=== PATIENT | male | born 1990 | race Caucasian/White ===

== ENCOUNTER 2018-01-03 19:20 | Emergency (ER) | payer BC, OTHER ==
[~2018-01-03] VITALS: Ht 177.8 cm; Wt 102.9 kg
[~2018-01-03 19:20] MED LIST: AMPH1TAB83 PO; LISD60CA PO
[2018-01-03 19:26] VITALS: TEMP 39.4; Ht 177.8 cm; Wt 102.9 kg
[2018-01-03] MEDS ORDERED: IBUPROFEN 600 MG TAB PO STA (19:37)
[2018-01-03] MEDS ORDERED: SODIUM CHLORIDE 0.9% 1000ML 1,000 ML IV STA (19:37)
[2018-01-03] MEDS ORDERED: ONDANSETRON INJ 2 MG/ML 2 ML VIAL IV STA (19:37)
[2018-01-03] MEDS ORDERED: ACETAMINOPHEN 325 MG TAB PO ONE (19:45)
[2018-01-03 19:49] VITALS: O2SAT 98
[2018-01-03 20:06] LABS: BASO % 0.1 %; BASO ABS # 0.01 K/uL (0-0.2); EOS % 0.1 %; EOS ABS # 0.01 K/uL (0-0.5); HEMATOCRIT 36.9 % (42-52); HEMOGLOBIN 13.2 g/dL (14.0-18.0); IG# 0.02 K/uL (0.00-0.02); LYMPH % 9.5 %; MEAN CELL VOLUME 90.2 fL (80-100); MEAN CORPUSCULAR HEMOGLOBIN 32.3 pg (25-34); MEAN CORPUSCULAR HGB CONC 35.8 g/dl (32-36); MEAN PLATELET VOLUME 9.4 fL (7.4-10.4); MONO % 10.6 %; MONO ABS # 1.12 K/uL (0.11-0.59); NEUT % 79.5 %; NEUT ABS # 8.37 K/uL (1.4-6.5); PLATELET COUNT 413 K/uL (130-400); RED CELL DISTRIBUTION WIDTH CV 11.8 % (11.5-14.5); RED CELL DISTRIBUTION WIDTH SD 38.8 fL (36.4-46.3); WHITE BLOOD COUNT 10.53 K/uL (4.8-10.8)
[2018-01-03 20:29] LABS: ALBUMIN 3.1 gm/dl (3.4-5.0); CALCIUM 8.8 mg/dl (8.5-10.1); CREATININE 1.04 mg/dl (0.60-1.40); POTASSIUM 3.8 mmol/L (3.5-5.1); TOTAL PROTEIN 8.3 gm/dl (6.4-8.2)
[2018-01-03 20:43] LABS: INFLUENZA B ANTIGEN Neg for Influ B (NEG)
--- NOTE | 2018-01-03 20:50 | DIAGNOSTIC IMAGING REPORT ---
CHEST 2 VIEWS ROUTINE CLINICAL HISTORY: Fever COMPARISON STUDY: No previous studies for comparison. FINDINGS: The heart is enlarged. There is blunting of the left lateral costophrenic angle possibly representing a trace effusion. There is mild vascular/interstitial prominence. There are subtle left basal airspace opacities. Given the history of cough this could reflect a focal pneumonitis.[ Clinical and radiographic follow-up is recommended. IMPRESSION: 1. Cardiomegaly and possible small left pleural effusion 2. Subtle left basal airspace opacities, possibly representing a pneumonitis given the history of cough Electronically signed by: Thom Stevenson M.D. 01/03/2018 8:48 PM Dictated Date/Time: 01/03/2018 8:46 PM
[2018-01-03] MEDS ORDERED: OPTIRAY 320 IV PRN (21:15)
[2018-01-03 21:16] LABS: MONOSPOT NEG (NEG)
--- NOTE | 2018-01-03 22:03 | DIAGNOSTIC IMAGING REPORT ---
CT ANGIOGRAM OF THE CHEST CLINICAL HISTORY: Atypical chest pain, fever, cough, shortness of breath. ANNUAL CHEST X-RAY COMPARISON STUDY: Conventional radiographic study dated 01/03/2018 TECHNIQUE: Following the IV administration of 114 mL of Optiray-320, CT angiogram of the thorax was performed from the thoracic inlet to the lung bases utilizing the pulmonary embolus protocol. Images are reviewed in the axial, sagittal, and coronal planes. IV contrast was administered without complication. MIP imaging was performed. A dose lowering technique was utilized adhering to the principles of ALARA. CT DOSE: 740.32 mGy.cm FINDINGS: There are mildly enlarged prevascular, paratracheal, and subcarinal lymph nodes. There is a moderate pericardial effusion. There was no evidence of thoracic aortic dilatation. Laryngeal opacification is slightly less than optimal. There are no filling defects to indicate acute pulmonary embolism. There are bilateral pleural effusions left greater than right. There is left lower lobe airspace consolidation, atelectatic versus a pneumonia. IMPRESSION: 1. Slightly suboptimal pulmonary arterial opacification, but no evidence of acute pulmonary embolism 2. Mild mediastinal lymphadenopathy 3. Moderate pericardial effusion 4. Bilateral pleural effusions left greater than right 5. Left lower lobe consolidative change, atelectatic versus pneumonia. Electronically signed by: Thom Stevenson M.D. 01/03/2018 10:02 PM Dictated Date/Time: 01/03/2018 9:57 PM
[2018-01-03] MEDS ORDERED: LEVO-18 PO (22:12)
[2018-01-03] MEDS ORDERED: LEVOFLOXACIN 250 MG TAB PO ONE (22:15)
[2018-01-03 22:37] VITALS: BP 131/73; PULSE 109; O2SAT 94
--- NOTE | 2018-01-04 00:55 | EMERGENCY ROOM VISIT NOTE ---
History Report prepared by Faraz: Atilio Shelton Under the Supervision of: Dr. Champ Siddiqui M.D. First contact with patient: 19:31 Chief Complaint: FEVER Stated Complaint: DIZZY,VOMITING,SEVERE CHEST AND BACK PAIN History of Present Illness The patient is a 27 year old male who presents to the Emergency Room with complaints of vomiting, nausea and shortness of breath that began 4 days ago and is not as bad when standing. He also complains of a cough that causes pain in his ribs and upper back along with initiating dry heaving episodes. Along with these symptoms he has had consistent diarrhea and loss of appetite as well as a fever that he became aware of today in triage. The patient states he has been bed ridden the past three days before attempting to go to work today. He was able to consume watermelon and half of a yogurt today but that is it. He explains that the symptoms began after food from [facility] "went down weird". The patient denies tick bites, rashes, leg swelling, traveling out of the country, or being around anyone else who is sick. Source of History: patient Onset: 4 days ago Position: chest Symptom Intensity: moderate Quality: ache Timing: constant Modifying Factors (Worsening): other (Coughing) Modifying Factors (Relieving): other (Standing) Associated Symptoms: + fevers, + cough, + SOB, + nausea, + vomiting, + back pain, + diarrhea Review of Systems See HPI for pertinent positives & negatives. A total of 10 systems reviewed and were otherwise negative. Past Medical & Surgical Medical Problems: (1) Asthma (2) Bronchitis (3) Hypertension Family History Diabetes mellitus Hypertension Kidney disease Kidney stones Social History Smoking Status: Current Every Day Smoker Alcohol Use: occasionally Drug Use: none Marital Status: single Housing Status: lives with family Occupation Status: unemployed Current/Historical Medications Scheduled Levofloxacin (Levaquin), 1 TAB PO DAILY Allergies Coded Allergies: No Known Allergies (Unverified , 01/03/18) Physical Exam Vital Signs Date Time Temp Pulse Resp B/P (MAP) Pulse Ox O2 Delivery O2 Flow Rate FiO2 01/03/18 22:37 109 18 131/73 94 01/03/18 21:57 111 18 111/68 93 Room Air 01/03/18 20:40 123 24 108/61 98 Nasal Cannula 3.0 01/03/18 19:54 124 01/03/18 19:49 98 Nasal Cannula 2.0 01/03/18 19:26 39.4 146 20 150/59 94 Room Air Physical Exam Constitutional: Vital signs reviewed. Eyes: Pupils are equal round reactive to light. Conjunctiva are noninjected. ENT: Pharynx is clear without erythema or exudate. Mucous membranes are dry. Neck supple without meningeal signs. Respiratory: Clear to auscultation bilaterally. Breath sounds are equal bilaterally. Cardiovascular: Tachycardic rate. Regular rhythm. No rubs or gallops. GI: Soft, nondistended and nontender. Bowel sounds are present. Musculoskeletal: No peripheral edema. No lower extremity tenderness. No CVA tenderness. Integumentary: No cyanosis. Neurological: The patient is awake and alert. No focal deficits. Psychiatric: Normal affect. Medical Decision & Procedures ER Provider Diagnostic Interpretation: Radiology results as stated below per my review and the radiologist's interpretation: CHEST 2 VIEWS ROUTINE CLINICAL HISTORY: Fever COMPARISON STUDY: No previous studies for comparison. FINDINGS: The heart is enlarged. There is blunting of the left lateral costophrenic angle possibly representing a trace effusion. There is mild vascular/interstitial prominence. There are subtle left basal airspace opacities. Given the history of cough this could reflect a focal pneumonitis.[ Clinical and radiographic follow-up is recommended. IMPRESSION: 1. Cardiomegaly and possible small left pleural effusion 2. Subtle left basal airspace opacities, possibly representing a pneumonitis given the history of cough Electronically signed by: Thom Stevenson M.D. 01/03/2018 8:48 PM Dictated Date/Time: 01/03/2018 8:[address] ANGIOGRAM OF THE CHEST CLINICAL HISTORY: Atypical chest pain, fever, cough, shortness of breath. ANNUAL CHEST X-RAY COMPARISON STUDY: Conventional radiographic study dated 01/03/2018 TECHNIQUE: Following the IV administration of 114 mL of Optiray-320, CT angiogram of the thorax was performed from the thoracic inlet to the lung bases utilizing the pulmonary embolus protocol. Images are reviewed in the axial, sagittal, and coronal planes. IV contrast was administered without complication. MIP imaging was performed. A dose lowering technique was utilized adhering to the principles of ALARA. CT DOSE: 740.32 mGy.cm FINDINGS: There are mildly enlarged prevascular, paratracheal, and subcarinal lymph nodes. There is a moderate pericardial effusion. There was no evidence of thoracic aortic dilatation. Laryngeal opacification is slightly less than optimal. There are no filling defects to indicate acute pulmonary embolism. There are bilateral pleural effusions left greater than right. There is left lower lobe airspace consolidation, atelectatic versus a pneumonia. IMPRESSION: 1. Slightly suboptimal pulmonary arterial opacification, but no evidence of acute pulmonary embolism 2. Mild mediastinal lymphadenopathy 3. Moderate pericardial effusion 4. Bilateral pleural effusions left greater than right 5. Left lower lobe consolidative change, atelectatic versus pneumonia. Electronically signed by: Thom Stevenson M.D. 01/03/2018 10:02 PM Dictated Date/Time: 01/03/2018 9:57 PM Laboratory Results 01/03/18 19:50 Red Blood Count 4.09, Mean Corpuscular Volume 90.2, Mean Corpuscular Hemoglobin 32.3, Mean Corpuscular Hemoglobin Concent 35.8, Mean Platelet Volume 9.4, Neutrophils (%) (Auto) 79.5, Lymphocytes (%) (Auto) 9.5, Monocytes (%) (Auto) 10.6, Eosinophils (%) (Auto) 0.1, Basophils (%) (Auto) 0.1, Neutrophils # (Auto ) 8.37, Lymphocytes # (Auto) 1.00, Monocytes # (Auto) 1.12, Eosinophils # (Auto ) 0.01, Basophils # (Auto) 0.01 01/03/18 19:50 Test 01/03/18 19:50 01/03/18 19:54 01/03/18 19:55 01/03/18 20:41 White Blood Count 10.53 K/uL (4.8-10.8) Red Blood Count 4.09 M/uL (4.7-6.1) Hemoglobin 13.2 g/dL (14.0-18.0) Hematocrit 36.9 % (42-52) Mean Corpuscular Volume 90.2 fL (80-100) Mean Corpuscular Hemoglobin 32.3 pg (25-34) Mean Corpuscular Hemoglobin Concent 35.8 g/dl (32-36) Platelet Count 413 K/uL (130-400) Mean Platelet Volume 9.4 fL (7.4-10.4) Neutrophils (%) (Auto) 79.5 % Lymphocytes (%) (Auto) 9.5 % Monocytes (%) (Auto) 10.6 % Eosinophils (%) (Auto) 0.1 % Basophils (%) (Auto) 0.1 % Neutrophils # (Auto) 8.37 K/uL (1.4-6.5) Lymphocytes # (Auto) 1.00 K/uL (1.2-3.4) Monocytes # (Auto) 1.12 K/uL (0.11-0.59) Eosinophils # (Auto) 0.01 K/uL (0-0.5) Basophils # (Auto) 0.01 K/uL (0-0.2) RDW Standard Deviation 38.8 fL (36.4-46.3) RDW Coefficient of Variation 11.8 % (11.5-14.5) Immature Granulocyte % (Auto) 0.2 % Immature Granulocyte # (Auto) 0.02 K/uL (0.00-0.02) Anion Gap 13.0 mmol/L (3-11) Est Creatinine Clear Calc Drug Dose 130.5 ml/min Estimated GFR () 115.1 Estimated GFR (Non- 99.3 BUN/Creatinine Ratio 14.9 (10-20) Calcium Level 8.8 mg/dl (8.5-10.1) Total Bilirubin 1.3 mg/dl (0.2-1) Aspartate Amino Transf (AST/SGOT) 41 U/L (15-37) Alanine Aminotransferase (ALT/SGPT) 99 U/L (12-78) Alkaline Phosphatase 151 U/L (45-117) Total Protein 8.3 gm/dl (6.4-8.2) Albumin 3.1 gm/dl (3.4-5.0) Globulin 5.2 gm/dl (2.5-4.0) Albumin/Globulin Ratio 0.6 (0.9-2) Lyme Disease IgG Antibody NEG (NEG) Lyme Disease IgM Antibody NEG (NEG) Monoscreen NEG (NEG) Bedside Lactic Acid Venous 1.02 mmol/L (0.90-1.70) Influenza Type A Antigen Neg for Influ A (NEG) Influenza Type B Antigen Neg for Influ B (NEG) Urine Color DK YELLOW Urine Appearance CLEAR (CLEAR) Urine pH 5.0 (4.5-7.5) Urine Specific [place] 1.031 (1.000-1.030) Urine Protein 2+ (NEG) Urine Glucose (UA) NEG (NEG) Urine Ketones 2+ (NEG) Urine Occult Blood NEG (NEG) Urine Nitrite POS (NEG) Urine Bilirubin 1+ (NEG) Urine Urobilinogen POS (NEG) Urine Leukocyte Esterase SMALL (NEG) Urine WBC (Auto) 10-30 /hpf (0-5) Urine RBC (Auto) 0-4 /hpf (0-4) Urine Hyaline Casts (Auto) 1-5 /lpf (0-5) Urine Epithelial Cells (Auto) 20-30 /lpf (0-5) Urine Bacteria (Auto) NEG (NEG) Laboratory results as reviewed by me. Medications Administered Medications (Trade) Dose Ordered Sig/Gilles Route Start Time Stop Time Status Last Admin Dose Admin Acetaminophen (Tylenol Tab) 650 mg ONE ONCE PO 01/03/18 19:45 01/03/18 19:46 DC 01/03/18 19:53 650 MG Sodium Chloride 1,000 ml @ 999 mls/hr Q1H1M STAT IV 01/03/18 19:37 01/03/18 20:37 DC 01/03/18 19:52 999 MLS/HR Ondansetron HCl (Zofran Inj) 4 mg NOW STAT IV 01/03/18 19:37 01/03/18 19:41 DC 01/03/18 19:52 4 MG Ibuprofen (Motrin Tab) 600 mg NOW STAT PO 01/03/18 19:37 01/03/18 19:41 DC 01/03/18 19:53 600 MG Levofloxacin (Levaquin Tab) 750 mg NOW ONCE PO 01/03/18 22:15 01/03/18 22:16 DC 01/03/18 22:33 750 MG ED Course 1934: The patient was evaluated in room C02B. A complete history and physical exam was performed. 2049: I reevaluated the patient he is still tachycardic with a heart rate of 119 and is dyspneic. Repeat temperature was 100.9. I suggested a CT scan to rule out pulmonary embolism since the symptoms seem disproportional to findings on the CXR. The patient agrees. 0: I reevaluated the patient and his heart rate is down to 105. I discussed test results as well as the precautions regarding Levaquin with the patient. 0: Upon reevaluation, the patient appeared to have improvement of his symptoms. I discussed rodrick's findings with the patient. He verbalized agreement of the treatment plan. He was discharged home. Medical Decision This is a 27-year-old male presents with fever, chest pain and shortness of breath. Differential diagnosis includes pneumonia, bronchitis, sepsis, dehydration, foodborne illness, gastroenteritis. I did perform a limited focused review of portions of the patient's old chart on the electronic medical record. The patient has had no recent pertinent visits to this hospital. I did evaluate the patient as noted above. The patient began to feel ill about 4 days ago. He had shortness of breath with a cough. He also developed vomiting and diarrhea after eating food from a gas station. He has been bedridden for 3 days but went to work today and felt worse. IV access was established. 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 I did order and personally review the patient's chest x-ray as described above. He has signs of pneumonitis in the left lower lobe. I did treat him with Tylenol and normal saline IV. He was also given ibuprofen and Zofran. I did order and review the patient's blood work as noted in the electronic medical record. His white blood cell count is not significantly elevated. His LFTs are slightly abnormal. Monospot and Lyme testing are negative. Rapid flu testing is negative. I did reassess the patient. He is feeling better but still remains tachycardic and tachypneic despite his temperature coming down. After further discussion with him he did agree to a CT scan of the chest to rule out PE. I did order a CT of the chest. I did review the images myself as well as the radiology report as described above. The CAT scan did not show any signs of PE. He does have signs of left-sided infiltrate. I also checked a urinalysis which show signs of he does not have any urinary symptoms. I did send a urine culture. I did treat with Levaquin 750 mg p.o. to cover both his UTI and pneumonia. He was discharged with a prescription for 6 additional days of Levaquin. He was advised to follow-up closely with his doctor and discharged in good condition. Medication Reconcilliation Current Medication List: was personally reviewed by me Blood Pressure Screening Patient's blood pressure: Elevated blood pressure Blood pressure disposition: Referred to PCP Impression Primary Impression: Left lower lobe pneumonia Additional Impressions: UTI (urinary tract infection) Vomiting and diarrhea Scribe Attestation The scribe's documentation has been prepared under my direct and personally reviewed by me in its entirety. I confirm that the note above accurately reflects all work, treatment, procedures, and medical decision making performed by me. Departure Information Dispostion Home / Self-Care Prescriptions Levofloxacin (LEVAQUIN) 750 Mg Tab 1 TAB PO DAILY for 6 Days, #6 TAB Prov: Champ Siddiqui M.D. 01/03/18 Referrals No Doctor, Assigned (PCP) Forms HOME CARE DOCUMENTATION FORM, IMPORTANT VISIT INFORMATION Patient Instructions My [facility] Additional Instructions You have been examined and treated today on an emergency basis only. This is not a substitute for, or an effort to provide, complete comprehensive medical care. It is impossible to recognize and treat all injuries or illnesses in a single emergency department visit. It is therefore important that you follow up closely with your physician. Call as soon as possible for an appointment. Return for worsening symptoms or if you develop any other concerning symptoms. Problem Qualifiers Primary Impression: Left lower lobe pneumonia Pneumonia type: due to unspecified organism Qualified Codes: J18.1 - Lobar pneumonia, unspecified organism Additional Impressions: UTI (urinary tract infection) Urinary tract infection type: acute cystitis Hematuria presence: without hematuria Qualified Codes: N30.00 - Acute cystitis without hematuria
== END 2018-01-03 22:40 | disposition home or self-care (01) ==
LOC: C.EDB 19:21 → C.EDC 22:40
DX: J18.1 Lobar pneumonia, unspecified organism (principal); N30.00 Acute cystitis without hematuria; R11.10 Vomiting, unspecified; R19.7 Diarrhea, unspecified; J45.909 Unspecified asthma, uncomplicated; I10 Essential (primary) hypertension; F17.210 Nicotine dependence, cigarettes, uncomplicated